=== PATIENT | male | born 1970 | race Caucasian/White ===

== ENCOUNTER 2019-11-18 06:13 | Day surgery (SDC) | payer OTHER, SELFPAY ==
[2019-11-14 07:30] VITALS: BMI 31.3
[2019-11-18] VITALS (14 sets, daily range): BP systolic 105–154; BP diastolic 64–90; PULSE 64–74; RESP 10–16; TEMP 36.3–37.2; O2SAT 85–97; BMI 30.6
--- NOTE | 2019-11-18 | PATH_ITS ---
[facility] Accession Number: [id number] . 01 Material submitted: . gallbladder - GALLBLADDER AND CONTENTS . 02 Diagnosis: Gallbladder, Cholecystectomy: Chronic cholecystitis. No calculi identified. Negative for dysplasia or malignancy. MRV 11/20/2019 1033 Local . 02 Electronically signed: . Cami Mantilla MD, Pathologist NPI- [id number] . 01 Gross description: . Received in formalin, labeled gallbladder and content, is an opened gallbladder (length-5.4 cm, diameter-2.7 cm) with jensen-pink, smooth, shiny serosa and an obliterated cystic duct. No lymph nodes are identified. The lumen is void of contents. No calculi are present. The mucosa is brown, smooth and flat. The wall is up to 0.1 cm thick. No nodules, masses or lesions are identified. Section code: (A1) proximal full-thickness serial section and two serial sections from the body; (A2) two longitudinal sections from the fundus. ([id number]) /MRV 11/19/2019 1334 Local . 02 Pathologist provided ICD-10: K81.1 . 02 CPT . 988228 Performed at: 01 [facility] [address], [place], [place] [id number] MD Pavel Gaytan MD Phone: [phone] Performed at: 02 [facility] [address] [place], [place] [id number] MD Cami Mantilla MD Phone: [phone]
--- NOTE | 2019-11-18 06:52 | PM.PREOP ---
Pre-operative Note Interval Note History & Physical reviewed/Exam performed by Physician: Yes Changes to H&P: No
[2019-11-18] MEDS: LACTATED RINGERS 1,000 ML 100 ML IV (07:25)
[2019-11-18] MEDS: CEFAZOLIN 2 GM/100 ML FROZ.PIGGY IV (08:00)
--- NOTE | 2019-11-18 08:18 | SUR.OPER ---
Supine on padded OR bed, head on pillow, arms secured on padded arm boards at <90 degrees abduction, legs uncrossed, safety belt at thigh, tape over blanket over lower legs.
[2019-11-18] MEDS: BUPIVACAINE 0.25% (PF) VIAL 30 ML INJ (08:24)
[2019-11-18] MEDS: ONDANSETRON 4 MG/2 ML INJ IV (09:23)
[2019-11-18] MEDS: fentaNYL 100 MCG/2 ML INJ IV ×2 (09:23→09:33)
--- NOTE | 2019-11-18 09:23 | PM.OP.1 ---
Operative Date/Time/Diagnoses Date of procedure: 11/18/19 Time of procedure: 09:23 Pre-op diagnosis: Biliary colic Post-op diagnosis: same Procedure & Clinicians Procedure: Laparoscopic cholecystectomy Same procedure as scheduled: Yes Indications: 49-year-old man with episodes of right upper quadrant pain following meals. He underwent a workup that showed no stones and he normal ejection fraction during HIDA exam but he he had significant pain with infusion of CCK similar to his episodes of abdominal pain. Surgeon: Parviz Ramsey Anesthesia Type: General Operative Notes Findings: Chronic cholecystitis Specimen(s): other (Gallbladder) Estimated Blood Loss (mL): 10 Procedure in detail: The patient was brought to the operating room placed supine on the table. Bilateral lower extremity compression devices were applied. General anesthesia was induced and they were intubated with an endotracheal tube. They received 2g of Ancef prior to skin incision. A time-out was performed to ensure the correct patient procedure necessary equipment within the operating room. They were then prepped and draped in the usual sterile fashion. Infraumbilical incision was made the umbilical stalk was grasped and elevated and the fascia was sharply incised. The abdomen was entered atraumatically. A 10 mm trocar was then placed into the abdomen. Pneumoperitoneum was established. The laparoscopic camera was inserted into the abdomen inspection was made that demonstrated no evidence of injury upon entry. We then placed our working ports the 1st 11 mm port high in the epigastrium and then two 5mm in the right upper quadrant. The gallbladder was grasped and retracted over the liver and grasped laterally by the fundus. There was evidence of chronic cholecystitis demonstrated by significant fat stranding and adhesions to the gallbladder The triangle of Calot was exposed. The triangle of calot was then meticulosly skeletonized using hook electrocautery and demonstrated the cystic duct clearly entering the gallbladder the cystic artery and the liver and in the background. With the critical view of safety established the cystic duct was clipped twice proximally and once distally and then sharply divided and the cystic artery was taken in the same fashion. Next the gallbladder was removed from the liver bed using electro cautery. The liver bed was then inspected for hemostasis and this was achieved. The abdomen was irrigated with sterile saline and inspection was made that showed the clips in good position. The specimen was removed using Endo-Catch. The abdomen was desufflated. The the fascia of the umbilicus was closed with 0 Vicryl in a [id number] fashion. Skin incisions were irrigated and closed with 4-0 Monocryl. The wounds were sealed with Dermabond. Patient emerged from general anesthesia was extubated and transferred to the postoperative care unit missed stable condition. The sponge and instrument count at the end of the operation was correct. Complications: none Post-operative Condition: stable Disposition: same day surgery
[2019-11-18] MEDS: METOCLOPRAMIDE 10 MG/2 ML INJ IV (09:35)
[2019-11-18] MEDS: OXYCODONE/ACETAMINOPHEN 5/325 TABLET 1 TAB PO ×2 (10:05→10:36)
[2019-11-18] MEDS: ACETAMINOPHEN 325 MG TABLET PO (10:37)
--- NOTE | 2019-11-18 10:53 | SUR.PHASEI ---
Pt dressing with 's assistance. Clarified w/Dr. Ramsey that pt can take ibuprofen.
--- NOTE | 2019-11-18 11:07 | SUR.PHASEII ---
Stable, pleasant, moving slowly, stable on feet. All medication questions answered/clarified. Friendly and appreciative.
== END 2019-11-18 10:55 | disposition home or self-care (01) ==
PROVIDERS: Referring Provider Surgery; Visit Provider Surgery
PROC: 0FT44ZZ Resection of Gallbladder, Percutaneous Endoscopic Approach (ICD-10-PCS; CPT 47562; principal; 2019-11-18 07:45)
DX: K81.1 Chronic cholecystitis (principal)
CPT/HCPCS: 47562; J0360; J0690; J1100; J2250; J2405; J2765; J3010

== ENCOUNTER 2019-11-20 15:18 | Observation (INO) | payer OTHER, SELFPAY ==
[2019-11-20] VITALS (9 sets, daily range): BP systolic 150–183; BP diastolic 74–92; PULSE 87–101; RESP 14–22; TEMP 36.9–39.6; O2SAT 93–99; BMI 31.4
--- NOTE | 2019-11-20 15:34 | DI.RAD.S_ITS ---
PROCEDURE: XR ACUTE ABDOMEN SERIES INDICATIONS: Abdominal pain, recent cholecystectomy, reportedly on Sunday of this week. TECHNIQUE: One view chest and two views of the abdomen were acquired. COMPARISON: None. FINDINGS: Surgical changes and devices: Surgical clips right upper quadrant consistent with reported recent cholecystectomy.. Chest: Lungs are clear. Heart size is normal. No pleural effusions. No pneumoperitoneum. Abdomen: Bowel gas pattern is nonspecific with a small bowel loop slightly prominent at the left lower abdomen. No suspicious calcifications. Visualized solid organ contours appear normal. Bones: No suspicious bony lesions. IMPRESSION: Nonspecific findings, right upper quadrant cholecystectomy clips. The presence of a single small bowel loop that is mildly gas prominent does not indicate a high likelihood of small bowel obstruction. However, depending on the clinical status followup by CT scanning may be warranted at this time. Dictated by: Pj Cedeno M.D. on 11/20/2019 at 16:42 Approved by: Pj Cedeno M.D. on 11/20/2019 at 16:43
--- NOTE | 2019-11-20 15:35 | ED_ITS ---
HPI - Sepsis General Chief Complaint: Fever Mode of arrival: EMS Source: EMS Limitations: no limitations Evaluation Sepsis Screen: No Definite Risk Sepsis Infection Criteria Present: Suspected New Infection Onset (ago): day(s) Associated Symptoms: fever, chills, cough, shortness of breath, nausea and abdominal pain Context: recent surgery/procedure Narrative: 49-year-old male daily smoker with history of GERD presents with fever, shaking chills cough productive of yellowish sputum which started yesterday. He was discharged on Sunday after having a laparoscopic cholecystectomy. He has not had a bowel movement in many days in states he is no longer passing gas. Additionally he has not urinated since at least yesterday. Review of Systems Constitutional Constitutional: Reports body ache(s), Reports chills, Denies fatigue, Reports fever(s), Denies frequent falls, Denies lethargy and Denies weakness Eyes Eyes: Denies change in vision, Denies eye discharge, Denies irritation and Denies loss of vision ENT Ears, Nose, Mouth, and Throat: Denies change in voice, Denies dizziness, Denies neck pain, Denies sore throat and Denies throat swelling Cardiovascular Cardiovascular: Denies chest pain, Denies irregular heart rhythm, Denies lightheadedness, Denies palpitations, Reports dyspnea, Denies dyspnea on exertion and Denies orthopnea Respiratory Respiratory: Reports cough, Reports excessive phlegm production, Reports dyspnea, Denies dyspnea on exertion and Denies wheezing Gastrointestinal Gastrointestinal: Reports abdominal pain, Denies change in bowel habits, Denies diarrhea, Reports nausea and Reports vomiting Genitourinary Genitourinary: Denies hematuria, Denies flank pain, Denies urinary incontinence and Denies urinary urgency Musculoskeletal Musculoskeletal: Denies back pain, Denies muscle weakness, Denies neck pain, Denies numbness and Denies tingling Integumentary/Breasts Skin/Breast: Denies pruritus, Denies erythema, Denies rash and Denies wounds Neurologic Neurologic: Denies behavioral changes, Denies confusion, Denies dizziness, Denies frequent falls, Denies loss of vision, Denies numbness, Denies tingling and Denies weakness Psychiatric Psychiatric: Denies anxiety, Denies behavioral changes, Denies confusion, Denies depression, Denies homicidal ideation and Denies suicidal ideation Endocrine Endocrine: Denies fatigue, Denies flushing and Denies palpitations Hematologic/Lymphatic Hematologic/Lymphatic: Denies easy bruising Allergic/Immunologic Allergic/Immunologic: Denies urticaria, Denies throat swelling and Denies whee zing Patient History Medical History Asthma (Acute) Depression (Acute) GERD (gastroesophageal reflux disease) (Acute) Hidradenitis (Acute) HTN (hypertension) (Acute) Tobacco abuse (Acute) Surgical History Hx of decompression of ulnar nerve (Acute) Hx of release of tendon (Acute) Hx of thumb surgery (Acute) Family History Mother Hypertension Gallstones Diabetes mellitus Father Hypertension Heart disease Social History marital status: household members: spouse occupational status: employed Smoking Status: Current every day smoker alcohol intake: former substance use type: does not use Smoking Status: Current every day smoker alcohol intake frequency: holidays/special occasions only Substance Use Type: marijuana Exam Narrative Exam Narrative: GENERAL: [49] year old patient appears stated age. Well- nourished, well-developed patient, in significant distress HEAD: Atraumatic. Normocephalic. EYES: Pupils equal round and reactive. Extraocular motions intact. No scleral icterus. No injection or drainage. ENT: Nose without bleeding, purulent drainage. Throat without erythema, t onsillar hypertrophy or exudate. Airway patent. NECK: Trachea midline. Non tender CARDIOVASCULAR: Regular rate and rhythm without murmurs, gallops, or rubs. RESPIRATORY: Decreased breath sounds bilaterally with coarse bases, perhaps faint crackles GASTROINTESTINAL: Firm, generalized tenderness, decreased breath sounds EXTREMITIES: No edema or joint tenderness. BACK: Nontender without deformity or crepitance. No flank tenderness. NEURO: AOx3. SKIN: No rash or erythema of visible areas Initial Vital Signs Initial Vital Signs: Vital Signs Temperature 100.5 F H 11/20/19 15:28 Pulse Rate 95 H 11/20/19 15:28 Respiratory Rate 15 11/20/19 15:28 Blood Pressure 178/80 H 11/20/19 15:28 Pulse Oximetry 99 11/20/19 15:28 Course Course Course Narrative: patient seen and evaluated by Dr. Ramsey at bedside. Orders Ordered: ED Orders 11/20/19 15:34 XR acute abdomen series Stat EKG-12 Lead Routine 11/20/19 15:43 Blood Culture Stat Complete Blood Count AUTO DIFF Stat Comprehensive Metabolic Panel Stat Lactate (Lactic Acid) Stat Procalcitonin Stat 11/20/19 15:52 Influenza A & B (PCR) Stat 11/20/19 16:28 CT chest abd pel w con Stat Levofloxacin (Levaquin) 750 mg in 150 mls @ 100 mls/hr IV NOW MARY KAY Last Infusion: 11/20/19 18:33 Dose: 0 mls/hr Documented by: Admin: 11/20/19 16:22 Dose: 100 mls/hr Documented by: ALEX Discontinued Medications Sodium Chloride (Normal Saline 0.9%) 3,333.9 mls @ 1,111.3 mls/hr 30 ml/kg infuse over 3 hr (3333.9 ml) IV NOW ONE Stop: 11/20/19 18:32 Last Infusion: 11/20/19 18:39 Dose: 0 mls/hr Documented by: Admin: 11/20/19 16:21 Dose: 1,111.3 mls/hr Documented by: ALEX Vital Signs Vital signs: Vital Signs - 8 hr 11/20/19 15:28 11/20/19 16:33 11/20/19 16:58 Temperature 100.5 F H Pulse Rate 95 H 93 H 101 H Respiratory Rate 15 21 22 Blood Pressure 178/80 H Blood Pressure [Left Arm] 154/77 H 158/86 H Blood Pressure [Right Arm] Pulse Oximetry 99 95 96 11/20/19 17:20 11/20/19 18:00 Temperature 100.5 F H 101.5 F H Pulse Rate 91 H Respiratory Rate 22 Blood Pressure Blood Pressure [Left Arm] Blood Pressure [Right Arm] 183/92 H Pulse Oximetry 95 MDM - Sepsis Lab Data Result diagrams: 11/20/19 15:43 11/20/19 15:43 Labs: Lab Results 11/20/19 11/20/19 11/20/19 Range/Units 15:43 15:43 15:43 WBC 10.2 (4.5-11.0) X10^3/uL RBC 5.00 (4.5-5.9) X10^6/uL Hgb 15.5 (13.5-17.5) g/dL Hct 43.9 (41-53) % MCV 87.8 (80-100) fL MCH 31.0 (26-34) PG MCHC 35.3 (30-36) % RDW 14.1 (11.6-14.8) % Plt Count 164 (150-400) X10^3/uL Neut % (Auto) 85.6 H (50-75) % Lymph % (Auto) 7.2 L (25-40) % [place] % (Auto) 6.7 (3-14) % Eos % (Auto) 0.2 L (2-4) % Baso % (Auto) 0.3 (0-2) % Neut # (Auto) 8700 H (6321-0406) /uL Lymph # (Auto) 700 L (3786-6256) /uL [place] # (Auto) 700 (0-900) /uL Eos # (Auto) 0 (0-450) /uL Baso # (Auto) 0 (0-100) /uL Sodium 136 L (137-145) mmol/L Potassium 3.6 (3.4-5.1) mmol/L Chloride 102 (98-107) mmol/L Carbon Dioxide 26 (22-32) mmol/L BUN 17 (9-20) mg/dL Creatinine 0.70 (0.66-1.25) mg/dL Estimated GFR > 60.0 (>60) mL/min BUN/Creatinine Ratio 24.3 H (6-22) Glucose 101 H (70-100) mg/dL Lactate (0.7-2.1) mmol/L Calcium 8.5 (8.4-10.2) mg/dL Total Bilirubin 0.5 (0.2-1.3) mg/dL AST 37 (17-59) IU/L ALT 50 H (<50) IU/L Alkaline Phosphatase 58 (38-126) U/L Total Protein 7.5 (6.3-8.2) g/dL Albumin 4.3 (3.5-5.0) g/dL Globulin 3.2 (1.7-4.1) g/dL Albumin/Globulin Ratio 1.3 (1.0-2.8) Procalcitonin 0.05 (<0.5) ng/mL 11/20/19 Range/Units 15:43 WBC (4.5-11.0) X10^3/uL RBC (4.5-5.9) X10^6/uL Hgb (13.5-17.5) g/dL Hct (41-53) % MCV (80-100) fL MCH (26-34) PG MCHC (30-36) % RDW (11.6-14.8) % Plt Count (150-400) X10^3/uL Neut % (Auto) (50-75) % Lymph % (Auto) (25-40) % [place] % (Auto) (3-14) % Eos % (Auto) (2-4) % Baso % (Auto) (0-2) % Neut # (Auto) (1798-1181) /uL Lymph # (Auto) (8438-2197) /uL [place] # (Auto) (0-900) /uL Eos # (Auto) (0-450) /uL Baso # (Auto) (0-100) /uL Sodium (137-145) mmol/L Potassium (3.4-5.1) mmol/L Chloride (98-107) mmol/L Carbon Dioxide (22-32) mmol/L BUN (9-20) mg/dL Creatinine (0.66-1.25) mg/dL Estimated GFR (>60) mL/min BUN/Creatinine Ratio (6-22) Glucose (70-100) mg/dL Lactate 1.4 (0.7-2.1) mmol/L Calcium (8.4-10.2) mg/dL Total Bilirubin (0.2-1.3) mg/dL AST (17-59) IU/L ALT (<50) IU/L Alkaline Phosphatase (38-126) U/L Total Protein (6.3-8.2) g/dL Albumin (3.5-5.0) g/dL Globulin (1.7-4.1) g/dL Albumin/Globulin Ratio (1.0-2.8) Procalcitonin (<0.5) ng/mL Urine Dip Bedside Urine Glucose Negative Bedside Urine Bilirubin - Negative Bedside Urine Ketone - Negative Urine Specific [place] 1.010 Bedside Urine Occult Blood - Negative Bedside Urine pH 8.0 Bedside Urine Protein - Negative Bedside Urine Urobilinogen - Negative Bedside Urine Nitrite - Negative Bedside Urine Leukocytes - Negative Esterase Imaging Data CT scan - abdomen/pelvis: Radiologist's Impression: 41 DO Justin Huynh Patient Imaging - Carlitos Blake 49 M 1970 ACTIVITY DATE EXAM STATUS AUTHOR 11/20/19 16:28 Signed Pj Cedeno 11/20/19 15:34 [place] [address] [place] Scan Report Signed Patient: Carlitos Blake WMR#: [id number] : 1970Acct:[id number] Age/Sex: 49 / MDate of Service: 11/20/19 Loc: ED Accession Number: [id number] Procedure: CT chest abd pel w con Ordering Provider: José Miguel Ochoa D.O. PROCEDURE: CT CHEST ABD PEL W CON INDICATIONS: cough, fever, shaking chills, severe abdominal pain post op TECHNIQUE: After the administration of intravenous contrast, 5 mm thick sections acquired from the lung apices to the symphysis. 2.5 mm thick coronal and sagittal reformats were acquired. Additional 7 mm thick coronal maximum intensity projection (MIP) reformats acquired through the lungs. Optional 10-minute delayed imaging may be performed from the kidneys to the bladder. For radiation dose reduction, the following was used: automated exposure control, adjustment of mA and/or kV according to patient size. COMPARISON: None. FINDINGS: Image quality: Excellent. CHEST: Lungs: No pulmonary contusions or lacerations. No acute airspace opacities. No pneumothorax or hemothorax. Central and peripheral airways appear patent and normal in caliber. Mediastinum: No mediastinal hematomas. Heart size is normal. No pericardial effusion. Thoracic aorta and pulmonary arteries demonstrate normal size and enhancement. No mediastinal or hilar adenopathy. Esophagus is normal in caliber. No hiatal her margarito. Chest wall: No rib fractures. No subcutaneous emphysema. No axillary or supraclavicular adenopathy. Thyroid gland appears normal where well seen. ABDOMEN: Solid organs: Liver is normal in size and enhancement, without lacerations. Gallbladder has been recently resected. Biliary system is non-dilated. Pancreas enhances normally, without transection. Spleen is normal in size and enhancement, without lacerations. No adrenal hematomas. Both kidneys enhance normally, without hydronephrosis or lacerations. Peritoneum and bowel: No free fluid or air. Unenhanced bowel loops demonstrate normal wall thickness and caliber. Nodes and vessels: No retroperitoneal or mesenteric adenopathy. Aorta and inferior vena cava are normal in size and enhancement. Miscellaneous: No ventral hernias. PELVIS: Genitourinary: Bladder wall thickness is normal. Miscellaneous: No inguinal hernias or adenopathy. Bones: Pelvic ring and hip joints appear intact. No vertebral compression fractures. IMPRESSION: Expected postsurgical change of cholecystectomy. No sign of bile leak. No operative complication found. Several small bowel loops are minimally prominent in terms of fluid within, but not to the degree that obstruction is suspected. Rather, mild postoperative ileus appears present. Dictated by: Pj Cedeno M.D. on 11/20/2019 at 17:20 Approved by: Pj Cedeno M.D. on 11/20/2019 at 17:22 [facility] Narrative Medical decision making narrative: 49-year-old male with gradually worsening abdominal pain and cough presents with fever and chills. Labs and imaging are very reassuring but given recent surgical intervention we sure the opinion that he is most appropriately observed in the hospital for potential evolution of underlying infection or illness Discharge Plan Departure Patient Disposition: Admitted as Observation Clinical Impression: Abdominal pain Qualifiers: Abdominal location: generalized Qualified Code(s): R10.84 - Generalized abdominal pain Fever Qualifiers: Fever type: unspecified Qualified Code(s): R50.9 - Fever, unspecified Admit Date/Time: 11/20/19 19:05 Admit Provider: Chepe Drummond
[2019-11-20 15:55] LABS: Add Manual Diff / Slide Review NO; Basophils Absolute Auto 0 /uL (0-100); Basophils Percent Auto 0.3 % (0-2); Eosinophils Absolute Auto 0 /uL (0-450); Eosinophils Percent Auto 0.2 % (2-4); Hematocrit 43.9 % (41-53); Hemoglobin 15.5 g/dL (13.5-17.5); Lymphocytes Absolute Auto 700 /uL (1100-4500); Lymphocytes Percent Auto 7.2 % (25-40); Mean Corpuscular HGB Conc 35.3 % (30-36); Mean Corpuscular Volume 87.8 fL (80-100); Monocytes Absolute Auto 700 /uL (0-900); Monocytes Percent Auto 6.7 % (3-14); Neutrophils Absolute Auto 8700 /uL (1500-7000); Neutrophils Percent Auto 85.6 % (50-75); Platelet Count 164 X10^3/uL (150-400); Red Cell Distribution Width 14.1 % (11.6-14.8); White Blood Cell Count 10.2 X10^3/uL (4.5-11.0)
[2019-11-20 16:03] LABS: Lactate (Lactic Acid) 1.4 mmol/L (0.7-2.1)
[2019-11-20 16:04] LABS: Alanine Aminotransferase 50 IU/L (<50); Albumin 4.3 g/dL (3.5-5.0); Albumin Globulin Ratio 1.3 (1.0-2.8); Alkaline Phosphatase 58 U/L (38-126); Aspartate Aminotransferase 37 IU/L (17-59); BUN Creatinine Ratio 24.3 (6-22); Bilirubin Total 0.5 mg/dL (0.2-1.3); Blood Urea Nitrogen 17 mg/dL (9-20); Calcium 8.5 mg/dL (8.4-10.2); Carbon Dioxide 26 mmol/L (22-32); Chloride 102 mmol/L (98-107); Estimated Glomerular Filt Rate > 60.0 mL/min (>60); Globulin 3.2 g/dL (1.7-4.1); Glucose 101 mg/dL (70-100); HEMOLYSIS < 15 (0-50); Potassium 3.6 mmol/L (3.4-5.1); Sodium 136 mmol/L (137-145); Total Protein 7.5 g/dL (6.3-8.2)
[2019-11-20 16:21] LABS: Procalcitonin 0.05 ng/mL (<0.5)
[2019-11-20] MEDS: SODIUM CHLORIDE 0.9% 1111.3 ML IV (16:21)
[2019-11-20] MEDS: levoFLOXacin 750 MG/150 ML PIGGYBACK 100 MG IV (16:22)
--- NOTE | 2019-11-20 16:28 | DI.CT.S_ITS ---
PROCEDURE: CT CHEST ABD PEL W CON INDICATIONS: cough, fever, shaking chills, severe abdominal pain post op TECHNIQUE: After the administration of intravenous contrast, 5 mm thick sections acquired from the lung apices to the symphysis. 2.5 mm thick coronal and sagittal reformats were acquired. Additional 7 mm thick coronal maximum intensity projection (MIP) reformats acquired through the lungs. Optional 10-minute delayed imaging may be performed from the kidneys to the bladder. For radiation dose reduction, the following was used: automated exposure control, adjustment of mA and/or kV according to patient size. COMPARISON: None. FINDINGS: Image quality: Excellent. CHEST: Lungs: No pulmonary contusions or lacerations. No acute airspace opacities. No pneumothorax or hemothorax. Central and peripheral airways appear patent and normal in caliber. Mediastinum: No mediastinal hematomas. Heart size is normal. No pericardial effusion. Thoracic aorta and pulmonary arteries demonstrate normal size and enhancement. No mediastinal or hilar adenopathy. Esophagus is normal in caliber. No hiatal hernia. Chest wall: No rib fractures. No subcutaneous emphysema. No axillary or supraclavicular adenopathy. Thyroid gland appears normal where well seen. ABDOMEN: Solid organs: Liver is normal in size and enhancement, without lacerations. Gallbladder has been recently resected. Biliary system is non-dilated. Pancreas enhances normally, without transection. Spleen is normal in size and enhancement, without lacerations. No adrenal hematomas. Both kidneys enhance normally, without hydronephrosis or lacerations. Peritoneum and bowel: No free fluid or air. Unenhanced bowel loops demonstrate normal wall thickness and caliber. Nodes and vessels: No retroperitoneal or mesenteric adenopathy. Aorta and inferior vena cava are normal in size and enhancement. Miscellaneous: No ventral hernias. PELVIS: Genitourinary: Bladder wall thickness is normal. Miscellaneous: No inguinal hernias or adenopathy. Bones: Pelvic ring and hip joints appear intact. No vertebral compression fractures. IMPRESSION: Expected postsurgical change of cholecystectomy. No sign of bile leak. No operative complication found. Several small bowel loops are minimally prominent in terms of fluid within, but not to the degree that obstruction is suspected. Rather, mild postoperative ileus appears present. Dictated by: Pj Cedeno M.D. on 11/20/2019 at 17:20 Approved by: Pj Cedeno M.D. on 11/20/2019 at 17:22
--- NOTE | 2019-11-20 19:27 | P.HP_ITS ---
History of Present Illness History of Present Illness Date Patient Seen: 11/20/19 Time Patient Seen: 16:28 Chief complaint: Fever SOB,post op Narrative: Patient is a gentleman who had a laparoscopic cholecystectomy performed 2 days ago. He developed severe abdominal pain fever and chills. He stated that when he blinks his abdomen hurts. Patient History Medical History Asthma (Acute) Depression (Acute) GERD (gastroesophageal reflux disease) (Acute) Hidradenitis (Acute) HTN (hypertension) (Acute) Tobacco abuse (Acute) Surgical History Hx of decompression of ulnar nerve (Acute) Hx of release of tendon (Acute) Hx of thumb surgery (Acute) Family & Social History Family History Mother Hypertension Gallstones Diabetes mellitus Father Hypertension Heart disease Social History: household members spouse Safety & Behavioral: Feels Safe in Current Yes Environment Been Physically Hurt or No Threatened By a Person Tobacco & Substance use: Tobacco type cigarettes Smoking Status Current every day smoker alcohol intake former alcohol intake frequency holiday/special occasion Substance Use Type marijuana Meds Home Medications and Allergies Home Medications Medication Instructions Recorded Confirmed Type ranitidine HCl 150 mg tablet 150 mg PO BID 11/10/19 11/20/19 History oxycodone 5 mg PO Q6H PRN #30 tab 11/18/19 11/20/19 Rx Allergies Allergy/AdvReac Type Severity Reaction Status Date / Time No Known Drug Allergies Allergy Verified 11/20/19 15:28 Review of Systems Review of Systems Narrative: Denies cough cold chest pain heart disease. States his abdomen is been hard for at least 8 months. Exam Vital Signs (past 8 hours): - 11/20/19 15:28 11/20/19 16:33 11/20/19 16:58 Temperature 100.5 F H Pulse Rate 95 H 93 H 101 H Respiratory Rate 15 21 22 Blood Pressure 178/80 H Blood Pressure [Left Arm] 154/77 H 158/86 H Blood Pressure [Right Arm] Pulse Oximetry 99 95 96 11/20/19 17:20 11/20/19 18:00 Temperature 100.5 F H 101.5 F H Pulse Rate 91 H Respiratory Rate 22 Blood Pressure Blood Pressure [Left Arm] Blood Pressure [Right Arm] 183/92 H Pulse Oximetry 95 Oxygen Delivery Method Room Air Narrative Exam Narrative: Lungs are clear heart regular rate and rhythm without murmur gallop abdomen is rigid but there is no tenderness with vigorous side decide palpation may have a red cast across the abdomen is difficult to tell due to the prep that was used intraoperatively. Incision appears to be intact Objective Labs Result Diagrams: 11/20/19 15:43 11/20/19 15:43 Labs: Laboratory Results - last 24 hr 11/20/19 11/20/19 11/20/19 15:43 15:43 15:43 WBC 10.2 RBC 5.00 Hgb 15.5 Hct 43.9 MCV 87.8 MCH 31.0 MCHC 35.3 RDW 14.1 Plt Count 164 Neut % (Auto) 85.6 H Lymph % (Auto) 7.2 L [place] % (Auto) 6.7 Eos % (Auto) 0.2 L Baso % (Auto) 0.3 Neut # (Auto) 8700 H Lymph # (Auto) 700 L [place] # (Auto) 700 Eos # (Auto) 0 Baso # (Auto) 0 Sodium 136 L Potassium 3.6 Chloride 102 Carbon Dioxide 26 BUN 17 Creatinine 0.70 Estimated GFR > 60.0 BUN/Creatinine Ratio 24.3 H Glucose 101 H Lactate Calcium 8.5 Total Bilirubin 0.5 AST 37 ALT 50 H Alkaline Phosphatase 58 Total Protein 7.5 Albumin 4.3 Globulin 3.2 Albumin/Globulin Ratio 1.3 Procalcitonin 0.05 11/20/19 15:43 WBC RBC Hgb Hct MCV MCH MCHC RDW Plt Count Neut % (Auto) Lymph % (Auto) [place] % (Auto) Eos % (Auto) Baso % (Auto) Neut # (Auto) Lymph # (Auto) [place] # (Auto) Eos # (Auto) Baso # (Auto) Sodium Potassium Chloride Carbon Dioxide BUN Creatinine Estimated GFR BUN/Creatinine Ratio Glucose Lactate 1.4 Calcium Total Bilirubin AST ALT Alkaline Phosphatase Total Protein Albumin Globulin Albumin/Globulin Ratio Procalcitonin Assessment & Plan Assessment and plan (1) Abdominal pain: Problem details: Patient with postoperative fever normal labs and a normal CT Qualifiers: Abdominal location: generalized Qualified Code(s): R10.84 - Generalized abdominal pain Current visit: Yes Status: Acute (2) Fever: Problem details: Will bring in begin broad-spectrum antibiotics cause unclear Qualifiers: Fever type: unspecified Qualified Code(s): R50.9 - Fever, unspecified Current visit: Yes Status: Acute
[2019-11-20 20:01] LABS: Influenza A - CEPHEID Flu A NEGATIVE (NEGATIVE); Influenza B - CEPHEID Flu B NEGATIVE (NEGATIVE)
[2019-11-20] MEDS: LACTATED RINGERS 1,000 ML 125 ML IV (20:45)
[2019-11-20] MEDS: AMPICILLIN/SULBACTAM 3 GM 3 GM in SODIUM CHLORIDE 0.9% 100 ML IV (20:48)
[2019-11-20] MEDS: ACETAMINOPHEN 325 MG TABLET 650 MG PO (20:51)
[2019-11-20] MEDS: KETOROLAC 30 MG/ML VIAL IV (20:52)
[2019-11-20] MEDS: GABAPENTIN 300 MG CAPSULE PO (20:52)
[2019-11-20] MEDS: CLINDAMYCIN 600 MG/50 ML PIGGYBACK 50 MG IV (22:02)
[2019-11-20] MEDS: MAGNESIUM CITRATE 300 ML SOLUTION 150 ML PO (22:04)
--- NOTE | 2019-11-20 23:31 | PC.NURSE ---
A&Ox4. 94%RA, 90% while asleep. LS: anterior and posterior wheezes. pt c/o SOB. VTO for RT nebulize and treat. Pt reports non-productive cough for a day and half. Respiratory panel ordered. Pt's last BM was 17th. bowel tones hypo, abdomen is tender and distended. VTO, mag citrate 150mls. pt NPO. IVF. oriented pt to the room. call light in reach.
[2019-11-20 23:32] LABS: Adenovirus Not Detected (Not Detect); Bordetella pertussis Not Detected (Not Detect); Chlamydophila pneumoniae Not Detected (Not Detect); Coronavirus 229E Not Detected (Not Detect); Coronavirus HKU1 Not Detected (Not Detect); Coronavirus NL 63 Not Detected (Not Detect); Coronavirus OC43 Not Detected (Not Detect); Human Metapneumovirus Not Detected (Not Detect); Human Rhinovirus/Enterovirus Not Detected (Not Detect); Influenza A Not Detected (Not Detect); Influenza B Not Detected (Not Detect); Mycoplasma pneumoniae Not Detected (Not Detect); Parainfluenza Virus 1 Not Detected (Not Detect); Parainfluenza Virus 2 Not Detected (Not Detect); Parainfluenza Virus 3 Not Detected (Not Detect); Parainfluenza Virus 4 Not Detected (Not Detect); Respiratory Syncytial Virus Not Detected (Not Detect)
[2019-11-21] VITALS (8 sets, daily range): BP systolic 135–165; BP diastolic 66–96; PULSE 61–84; RESP 16–20; TEMP 36.7–37.3; O2SAT 91–97
[2019-11-21] MEDS: HYDROMORPHONE 2 MG TABLET 1 MG PO ×3 (00:33→21:38)
[2019-11-21] MEDS: AMPICILLIN/SULBACTAM 3 GM 3 GM in SODIUM CHLORIDE 0.9% 100 ML IV ×4 (02:26→21:17)
[2019-11-21] MEDS: KETOROLAC 30 MG/ML VIAL IV ×3 (04:04→18:20)
[2019-11-21] MEDS: CLINDAMYCIN 600 MG/50 ML PIGGYBACK 50 MG IV ×3 (04:04→20:15)
[2019-11-21 06:11] LABS: BUN Creatinine Ratio 16.3 (6-22); Blood Urea Nitrogen 13 mg/dL (9-20); Carbon Dioxide 28 mmol/L (22-32); Chloride 102 mmol/L (98-107); Estimated Glomerular Filt Rate > 60.0 mL/min (>60); Glucose 100 mg/dL (70-100); HEMOLYSIS < 15 (0-50); Potassium 3.9 mmol/L (3.4-5.1); Sodium 139 mmol/L (137-145)
[2019-11-21] MEDS: ENOXAPARIN 40 MG/0.4 ML SYRINGE SUBCUT (08:57)
[2019-11-21] MEDS: ACETAMINOPHEN 325 MG TABLET 650 MG PO ×2 (08:57→17:56)
[2019-11-21] MEDS: GABAPENTIN 300 MG CAPSULE PO ×2 (08:57→20:22)
[2019-11-21] MEDS: LACTATED RINGERS 1,000 ML 125 ML IV (09:09)
--- NOTE | 2019-11-21 11:15 | PC.NURSE ---
Addendum entered by Georgia Thomason R.N. 11/21/19 12:40: Paged Dr. Hylton at 1210, rec'd kandy back at 1215. made aware that pt generally feels miserable, Headache with cough and persistent, Abd bloating, afebrile at this time, states chest feels tight to breath. Remains on Ra, 94-96% on RA. Ambulated in halls. Anxious. New order for Ativan 0.5mg IV X1 if needed, will try PRN Toradol first. Dr to see pt later today. Pt and his aware of update. Original Note: Day Shift- Pt A&OX4, anxious regarding hospital admission and plan for today. Support and encouragement provided. Encouraged pt to get OOB, ambulate, pt has steady gait. Have periods of light activity/walking, then rest periods. O2 sat 96% on RA, pt does have intermittent strong cough, which he states increases his headache pain. Small sputum production with cream colored sputum, few blood-pink spots present. Pt states his last Cigarette was 20th in the morning. Pt states chest feels tight, AE clear throughout lung ellis, diminished to lower lung ellis. Encouraged deep breathing and coughing with abd splinting. This com writer explained that when abd is bloated, the diaphragm pushes into abd, feels like one cannot take a deep breath. Will continue to monitor. Abd distended, BSX4, passing little flatus, belching, NPO for now, did have small sip of water with AM meds. IVF infusing to right hand PIV. Abd lap sites from previous lap Cholecystectomy are well approximated, steri-strips intact to lap sites X4. Fenton skin noted to distal end of umbilicus incision around steri-strip. Pt stated the umbilicus site has the most discomfort and was red last night. Pt's adult son Сергей rooming in.
[2019-11-21 13:29] LABS: Add Manual Diff / Slide Review NO; Basophils Absolute Auto 0 /uL (0-100); Basophils Percent Auto 0.5 % (0-2); Eosinophils Absolute Auto 0 /uL (0-450); Eosinophils Percent Auto 0.2 % (2-4); Hematocrit 43.4 % (41-53); Hemoglobin 15.3 g/dL (13.5-17.5); Lymphocytes Absolute Auto 1000 /uL (1100-4500); Mean Corpuscular HGB Conc 35.2 % (30-36); Mean Corpuscular Hemoglobin 30.9 PG (26-34); Mean Corpuscular Volume 87.8 fL (80-100); Monocytes Absolute Auto 700 /uL (0-900); Monocytes Percent Auto 10.8 % (3-14); Neutrophils Absolute Auto 5100 /uL (1500-7000); Neutrophils Percent Auto 74.5 % (50-75); Platelet Count 146 X10^3/uL (150-400); Red Blood Cell Count 4.94 X10^6/uL (4.5-5.9); Red Cell Distribution Width 14.2 % (11.6-14.8); White Blood Cell Count 6.9 X10^3/uL (4.5-11.0)
[2019-11-21 14:07] LABS: Procalcitonin 0.12 ng/mL (<0.5)
--- NOTE | 2019-11-21 15:30 | DI.RAD.S_ITS ---
PROCEDURE: XR CHEST 1V INDICATIONS: purulent sputum TECHNIQUE: One view of the chest was acquired. COMPARISON: [facility], CR, RIBS UNILATERAL WITH PA CXR, 05/10/2012, 15:34. FINDINGS: Surgical changes and devices: None. Lungs and pleura: Lungs are clear except for a slight degree of interstitial prominence, previously present and potentially a manifestation of prior smoking history. No pleural effusions or pneumothorax. Mediastinum: Mediastinal contours appear normal. Heart size is normal. Bones and chest wall: No suspicious bony lesions. Overlying soft tissues appear unremarkable. IMPRESSION: No pneumonia found. Mild interstitial prominence has been previously present extending into 2011 by prior plain film. This may reflect prior smoking history. No neoplasm suspected. Dictated by: Pj Cedeno M.D. on 11/21/2019 at 16:07 Approved by: Pj Cedeno M.D. on 11/21/2019 at 16:08
--- NOTE | 2019-11-21 15:33 | PM.PN.1 ---
Subjective Subjective Date Patient Seen: 11/21/19 Time Patient Seen: 15:33 Interval history: No acute events overnight. The patient is passing some gas and stool. He feels somewhat better generally, with less abdominal pain today. He still feels quite distended, and is having headache. Exam Vital Signs (past 8 hours): - 11/21/19 09:00 11/21/19 12:35 11/21/19 13:00 Temperature 98.4 F 98.2 F Pulse Rate 68 69 73 Respiratory Rate 18 18 20 Blood Pressure 156/96 H 135/79 Pulse Oximetry 96 94 96 Oxygen Delivery Method Room Air Oxygen Flow Rate 0 Narrative Exam Narrative: GENERAL: Alert, oriented, mild distress due to pain and discomfort HENT: Normocephalic, atraumatic. Hearing intact. Oral mucosa is pink and moist. EYES: Conjunctiva pink, sclera white, no periorbital swelling. CARDIOVASCULAR: Regular rate. No pedal edema. RESPIRATORY: Non-tachypneic, breathing comfortably on room air. GASTROINTESTINAL: Abdomen soft, moderately distended, mild generalized peritonitis GENITALURINARY: No flank tenderness. MUSCULOSKELETAL: Equal tone and mass bilaterally. SKIN: Warm, dry, soft, appropriate color for ethnicity. No other lesions, rashes, or wounds. NEURO: Alert and Oriented X 3. No gross sensory deficits, or cognitive issues. PSYCH: Appropriate affect and mood. Objective Labs Result Diagrams: 11/21/19 13:20 11/21/19 05:30 Labs: Laboratory Results - last 24 hr 11/20/19 11/20/19 11/20/19 15:43 15:43 15:43 WBC 10.2 RBC 5.00 Hgb 15.5 Hct 43.9 MCV 87.8 MCH 31.0 MCHC 35.3 RDW 14.1 Plt Count 164 Neut % (Auto) 85.6 H Lymph % (Auto) 7.2 L [place] % (Auto) 6.7 Eos % (Auto) 0.2 L Baso % (Auto) 0.3 Neut # (Auto) 8700 H Lymph # (Auto) 700 L [place] # (Auto) 700 Eos # (Auto) 0 Baso # (Auto) 0 Sodium 136 L Potassium 3.6 Chloride 102 Carbon Dioxide 26 BUN 17 Creatinine 0.70 Estimated GFR > 60.0 BUN/Creatinine Ratio 24.3 H Glucose 101 H Lactate Calcium 8.5 Total Bilirubin 0.5 AST 37 ALT 50 H Alkaline Phosphatase 58 Total Protein 7.5 Albumin 4.3 Globulin 3.2 Albumin/Globulin Ratio 1.3 Procalcitonin 0.05 Chlamy pneumoniae PCR Adenovirus (PCR) B.parapertussis DNA PCR Coronavirus OC43 (PCR) Coronavirus HKU1 (PCR) Coronavirus 229E (PCR) Coronavirus NL63 (PCR) Human Metapneumovir PCR Influenza A (RT-PCR) Influenza Type A (PCR) Influenza B (RT-PCR) Influenza Type B (PCR) M. pneumoniae (PCR) Parainfluenza 1 (PCR) Parainfluenza 2 (PCR) Parainfluenza 3 (PCR) Parainfluenza 4 (PCR) RSV (PCR) Entero/Rhino (PCR) 11/20/19 11/20/19 11/20/19 15:43 19:25 22:17 WBC RBC Hgb Hct MCV MCH MCHC RDW Plt Count Neut % (Auto) Lymph % (Auto) [place] % (Auto) Eos % (Auto) Baso % (Auto) Neut # (Auto) Lymph # (Auto) [place] # (Auto) Eos # (Auto) Baso # (Auto) Sodium Potassium Chloride Carbon Dioxide BUN Creatinine Estimated GFR BUN/Creatinine Ratio Glucose Lactate 1.4 Calcium Total Bilirubin AST ALT Alkaline Phosphatase Total Protein Albumin Globulin Albumin/Globulin Ratio Procalcitonin Chlamy pneumoniae PCR Not detected Adenovirus (PCR) Not detected B.parapertussis DNA PCR Not detected Coronavirus OC43 (PCR) Not detected Coronavirus HKU1 (PCR) Not detected Coronavirus 229E (PCR) Not detected Coronavirus NL63 (PCR) Not detected Human Metapneumovir PCR Not detected Influenza A (RT-PCR) Flu a negative Influenza Type A (PCR) Not detected Influenza B (RT-PCR) Flu b negative Influenza Type B (PCR) Not detected M. pneumoniae (PCR) Not detected Parainfluenza 1 (PCR) Not detected Parainfluenza 2 (PCR) Not detected Parainfluenza 3 (PCR) Not detected Parainfluenza 4 (PCR) Not detected RSV (PCR) Not detected Entero/Rhino (PCR) Not detected 11/21/19 11/21/19 11/21/19 05:30 13:20 13:20 WBC 6.9 RBC 4.94 Hgb 15.3 Hct 43.4 MCV 87.8 MCH 30.9 MCHC 35.2 RDW 14.2 Plt Count 146 L Neut % (Auto) 74.5 Lymph % (Auto) 14.0 L [place] % (Auto) 10.8 Eos % (Auto) 0.2 L Baso % (Auto) 0.5 Neut # (Auto) 5100 Lymph # (Auto) 1000 L [place] # (Auto) 700 Eos # (Auto) 0 Baso # (Auto) 0 Sodium 139 Potassium 3.9 Chloride 102 Carbon Dioxide 28 BUN 13 Creatinine 0.80 Estimated GFR > 60.0 BUN/Creatinine Ratio 16.3 Glucose 100 Lactate Calcium 8.0 L Total Bilirubin AST ALT Alkaline Phosphatase Total Protein Albumin Globulin Albumin/Globulin Ratio Procalcitonin 0.12 Chlamy pneumoniae PCR Adenovirus (PCR) B.parapertussis DNA PCR Coronavirus OC43 (PCR) Coronavirus HKU1 (PCR) Coronavirus 229E (PCR) Coronavirus NL63 (PCR) Human Metapneumovir PCR Influenza A (RT-PCR) Influenza Type A (PCR) Influenza B (RT-PCR) Influenza Type B (PCR) M. pneumoniae (PCR) Parainfluenza 1 (PCR) Parainfluenza 2 (PCR) Parainfluenza 3 (PCR) Parainfluenza 4 (PCR) RSV (PCR) Entero/Rhino (PCR) Assessment & Plan Assessment and plan (1) Abdominal pain: Problem details: Patient with postoperative fever normal labs and a normal CT, fever has improved and white count is improving on broad-spectrum antibiotics. Abdominal pain has improved somewhat, but the patient remains quite distended. He is passing some gas and stool, and denies nausea or vomiting. Repeat CMP, consider repeat CT scan if labs not improving Qualifiers: Abdominal location: generalized Qualified Code(s): R10.84 - Generalized abdominal pain Current visit: Yes Status: Acute (2) Fever: Problem details: Continue IV antibiotic, repeat procalcitonin CBC Qualifiers: Fever type: unspecified Qualified Code(s): R50.9 - Fever, unspecified Current visit: Yes Status: Acute (3) Bloating: Problem details: Continue NPO except for water and ice chips, continue ambulation Current visit: Yes Status: Acute Quality VTE Deep Vein Thrombosis/Pulmonary Embolism Present on Admission: No
[2019-11-21 15:44] LABS: Alanine Aminotransferase 53 IU/L (<50); Albumin 3.8 g/dL (3.5-5.0); Albumin Globulin Ratio 1.4 (1.0-2.8); Alkaline Phosphatase 67 U/L (38-126); Aspartate Aminotransferase 44 IU/L (17-59); Bilirubin Total 0.8 mg/dL (0.2-1.3); Bilirubin Unconjugated 0.6 mg/dL (0.0-1.1); Globulin 2.7 g/dL (1.7-4.1); HEMOLYSIS 16 (0-50); Total Protein 6.5 g/dL (6.3-8.2)
[2019-11-21] MEDS: DOCUSATE 100 MG CAPSULE PO (20:22)
[2019-11-22] VITALS (8 sets, daily range): BP systolic 124–147; BP diastolic 79–90; PULSE 54–70; RESP 16–20; TEMP 36.4–38.1; O2SAT 95–97
[2019-11-22] MEDS: KETOROLAC 30 MG/ML VIAL IV ×3 (02:06→20:04)
[2019-11-22] MEDS: AMPICILLIN/SULBACTAM 3 GM 3 GM in SODIUM CHLORIDE 0.9% 100 ML IV ×4 (02:07→21:26)
[2019-11-22] MEDS: CLINDAMYCIN 600 MG/50 ML PIGGYBACK 50 MG IV ×3 (03:36→20:02)
[2019-11-22 06:10] LABS: Add Manual Diff / Slide Review NO; Basophils Absolute Auto 0 /uL (0-100); Basophils Percent Auto 0.6 % (0-2); Eosinophils Absolute Auto 100 /uL (0-450); Eosinophils Percent Auto 1.3 % (2-4); Hematocrit 44.5 % (41-53); Hemoglobin 15.8 g/dL (13.5-17.5); Lymphocytes Absolute Auto 1300 /uL (1100-4500); Lymphocytes Percent Auto 17.8 % (25-40); Mean Corpuscular HGB Conc 35.4 % (30-36); Mean Corpuscular Hemoglobin 31.1 PG (26-34); Mean Corpuscular Volume 87.9 fL (80-100); Monocytes Absolute Auto 800 /uL (0-900); Monocytes Percent Auto 10.9 % (3-14); Neutrophils Absolute Auto 5200 /uL (1500-7000); Neutrophils Percent Auto 69.4 % (50-75); Platelet Count 145 X10^3/uL (150-400); Red Blood Cell Count 5.07 X10^6/uL (4.5-5.9); Red Cell Distribution Width 14.2 % (11.6-14.8); White Blood Cell Count 7.5 X10^3/uL (4.5-11.0)
[2019-11-22 06:23] LABS: Alanine Aminotransferase 51 IU/L (<50); Albumin Globulin Ratio 1.3 (1.0-2.8); Alkaline Phosphatase 61 U/L (38-126); Aspartate Aminotransferase 41 IU/L (17-59); BUN Creatinine Ratio 18.3 (6-22); Bilirubin Total 0.6 mg/dL (0.2-1.3); Blood Urea Nitrogen 11 mg/dL (9-20); Calcium 8.2 mg/dL (8.4-10.2); Carbon Dioxide 27 mmol/L (22-32); Chloride 101 mmol/L (98-107); Estimated Glomerular Filt Rate > 60.0 mL/min (>60); Glucose 100 mg/dL (70-100); HEMOLYSIS < 15 (0-50); Magnesium 2.5 mg/dL (1.6-2.3); Potassium 3.7 mmol/L (3.4-5.1); Sodium 139 mmol/L (137-145)
[2019-11-22] MEDS: HYDROMORPHONE 2 MG TABLET 1 MG PO ×2 (06:26→17:16)
--- NOTE | 2019-11-22 06:54 | PC.NURSE ---
Pt did well overnight. Complained of mild abdominal pain relived with Toradol. Only given 1mg PO dilaudid this morning after walking in halls. 2 small to medium loose BMs overnight. Hypoactive BT, distended belly, 4 lap sites clean dry intact Expiratory wheezes noted throughout. Pt reports hx smoking. reports dry cough afebrile with Max temp 99F Tolerating clear liquids but pt slowing down on intake due to increasing stomach pain during the evening. LR@125mL/hr continued
[2019-11-22] MEDS: ENOXAPARIN 40 MG/0.4 ML SYRINGE SUBCUT (08:21)
[2019-11-22] MEDS: GABAPENTIN 300 MG CAPSULE PO ×2 (08:21→20:02)
[2019-11-22] MEDS: DOCUSATE 100 MG CAPSULE PO ×2 (08:21→20:02)
[2019-11-22] MEDS: LACTATED RINGERS 1,000 ML 125 ML IV ×2 (09:54→23:57)
[2019-11-22] MEDS: SODIUM CHLORIDE 0.9% FLUSH 10 ML IV (10:59)
--- NOTE | 2019-11-22 12:05 | P.PN_ITS ---
Subjective Subjective Date Patient Seen: 11/22/19 Time Patient Seen: 12:05 Interval history: Patient is a gentleman admitted with severe abdominal pain. He feels like asked to move his bowels. Despite recording 3 bowel movements he says he has not moved anything of any significance through. He said he was given a bottle of lemonade tasting stuff but he only drank half of it. He has received stool softeners but not really had any effect. Exam Vital Signs (past 8 hours): - 11/22/19 05:00 11/22/19 08:00 11/22/19 11:20 Temperature 98.2 F 98.0 F 99.1 F Pulse Rate 67 63 56 L Respiratory Rate 16 18 18 Blood Pressure 131/87 147/86 H 143/82 H Pulse Oximetry 97 96 96 Oxygen Delivery Method Room Air Oxygen Flow Rate 0 Narrative Exam Narrative: Lungs are clear to auscultation. No rales or rhonchi. Heart regular rate and rhythm without murmur gallop. Abdomen is protuberant possibly distended soft. Incisions are intact. No redness of the abdominal wall. No obvious hernias. Objective Labs Result Diagrams: 11/22/19 05:34 11/22/19 05:34 Labs: Laboratory Results - last 24 hr 11/21/19 11/21/19 11/21/19 13:20 13:20 13:20 WBC 6.9 RBC 4.94 Hgb 15.3 Hct 43.4 MCV 87.8 MCH 30.9 MCHC 35.2 RDW 14.2 Plt Count 146 L Neut % (Auto) 74.5 Lymph % (Auto) 14.0 L [place] % (Auto) 10.8 Eos % (Auto) 0.2 L Baso % (Auto) 0.5 Neut # (Auto) 5100 Lymph # (Auto) 1000 L [place] # (Auto) 700 Eos # (Auto) 0 Baso # (Auto) 0 Sodium Potassium Chloride Carbon Dioxide BUN Creatinine Estimated GFR BUN/Creatinine Ratio Glucose Calcium Magnesium Total Bilirubin 0.8 Conjugated Bilirubin 0.0 Unconjugated Bilirubin 0.6 AST 44 ALT 53 H Alkaline Phosphatase 67 Total Protein 6.5 Albumin 3.8 Globulin 2.7 Albumin/Globulin Ratio 1.4 Procalcitonin 0.12 11/22/19 11/22/19 05:34 05:34 WBC 7.5 RBC 5.07 Hgb 15.8 Hct 44.5 MCV 87.9 MCH 31.1 MCHC 35.4 RDW 14.2 Plt Count 145 L Neut % (Auto) 69.4 Lymph % (Auto) 17.8 L [place] % (Auto) 10.9 Eos % (Auto) 1.3 L Baso % (Auto) 0.6 Neut # (Auto) 5200 Lymph # (Auto) 1300 [place] # (Auto) 800 Eos # (Auto) 100 Baso # (Auto) 0 Sodium 139 Potassium 3.7 Chloride 101 Carbon Dioxide 27 BUN 11 Creatinine 0.60 L Estimated GFR > 60.0 BUN/Creatinine Ratio 18.3 Glucose 100 Calcium 8.2 L Magnesium 2.5 H Total Bilirubin 0.6 Conjugated Bilirubin Unconjugated Bilirubin AST 41 ALT 51 H Alkaline Phosphatase 61 Total Protein 7.0 Albumin 4.0 Globulin 3.0 Albumin/Globulin Ratio 1.3 Procalcitonin Assessment & Plan Post-op Postoperative Postoperative status narrative: Patient post laparoscopic cholecystectomy on Sunday. Symptoms do not correlate with objective findings. Will try to stimulate bowel function. He is tolerating p.o. liquids without any problem. His fever abated essentially on admission. Chest x-rays shows no infiltrate and is a pretty unremarkable study. Plain films and CT did not show evidence of significant distension through his intestine Postoperative plan narrative: Ordered mineral oil, milk of magnesia and fleets enema. His plain films on admission showed stool throughout his colon. Will continue his IV antibiotics. If he tolerates liquids today we will advance him tomorrow. Quality VTE Deep Vein Thrombosis/Pulmonary Embolism Present on Admission: No
--- NOTE | 2019-11-22 12:49 | CM.DANOTE ---
Addendum entered by Domi Phelps LPN 11/22/19 13:29: Met with pt and his Shalonda. Pt is found lying in bed, abdomen appears distended and he reports it is painful and he great urge to move his bowels but has not been able to. it's just a little urine -like dribble that comes out. He says he has been getting up to walk the halls as much as possible. Has clear liquid tray in front of him that he is working on as he can. P: follow prn as POC unfolds Original Note: Discharge Planning/Care Management DCP: assessment: Case received, EMR reviewed. Discussed in Team Rounds. Pt is a 49 year old male who admitted night of 11/20 to care of [facility] : Dr. Drummond. Pt had a laproscopic cholecystectomy on 11/[address] Ramsey and with admission now for severe abdominal pain, fever and chills. Dr. Drummond was just here, notes CT shows colon full of stool and new bowel meds are now ordered. Pt will continue IV antibiotics and continue to try liquids. If this is tolerated, diet will be advanced tomorrow. Will follow for any d/c needs that may arise but anticipate pt will d/c to home setting when his bowel function has returned and he is tolerating diet. CM Discharge Assessment Start: 11/22/19 12:46 Freq: Status: Active Protocol: Document 11/22/19 12:46 ITV (Rec: 11/22/19 12:49 ITV [id number]) Discharge Planning Assessment Advance Directives? No History Provided By Medical Record Prior Living Arrangements House Household Members spouse Independent with ADL's Yes Is patient alert and oriented? Yes White board Updated in Patient Room with Yes name and ext. # of [employer] Review Status In Process
[2019-11-22] MEDS: MAGNESIUM HYDROXIDE 30 ML UDC PO (13:30)
[2019-11-22] MEDS: MINERAL OIL 473 ML OIL 30 ML PO (13:31)
[2019-11-22] MEDS: FLEETS ENEMA 1 EACH PR (13:31)
--- NOTE | 2019-11-22 15:53 | PC.NURSE ---
Day Shift- Pt c/o abd bloating, pressure, cramping 4-6/10. Belching, states nausea with coughing that lasts only a few minutes. ABd firm, BSX4, little amount of flatus, usually when trying to have a BM. Explained to pt to not strain while trying to have a BM, also to abd splint when coughing, moving. Had small loose BM this AM. Fleet enema, Milk of Magnesia, and Mineral oil given at 1330, see MAR. Pt instructed on enema procedure and expectations. Pt had small clear BM first then had moderate soft BM reported by [facility]. Evening Rn aware.
[2019-11-22] MEDS: ACETAMINOPHEN 325 MG TABLET 650 MG PO (20:06)
--- NOTE | 2019-11-22 22:21 | PC.NURSE ---
Evening Shift Note Patient with increased temperature this evening, lungs auscultated and fine crackles to bilateral bases. Patient encouraged to cough, deep breath and use IS hourly. Educated patient on risk of pneumonia due to decreased mobility this shift, ambulating to bathroom independently, otherwise laying flat in bed. Encouraged patient to sit up in chair and practice breathing exercises, walk in hallways several times per day to assist in movement of bowels and decrease risk of pneumonia. After conversation patient up and walking, stating I don't want to make anything worse. This RN retook patient temperature and WNL, lungs auscultated and lungs clear to bases with expiratory wheezes in left lobe. Will continue to monitor.
[2019-11-23] MEDS: AMPICILLIN/SULBACTAM 3 GM 3 GM in SODIUM CHLORIDE 0.9% 100 ML IV ×3 (02:31→13:53)
[2019-11-23] MEDS: CLINDAMYCIN 600 MG/50 ML PIGGYBACK 50 MG IV ×2 (04:10→11:21)
[2019-11-23 04:45] VITALS: BP 143/78; PULSE 57; RESP 16; TEMP 36.8; O2SAT 94
[2019-11-23 05:51] LABS: Add Manual Diff / Slide Review NO; Basophils Absolute Auto 0 /uL (0-100); Basophils Percent Auto 0.5 % (0-2); Eosinophils Absolute Auto 200 /uL (0-450); Eosinophils Percent Auto 1.9 % (2-4); Hemoglobin 16.2 g/dL (13.5-17.5); Lymphocytes Absolute Auto 1600 /uL (1100-4500); Lymphocytes Percent Auto 19.3 % (25-40); Mean Corpuscular HGB Conc 35.3 % (30-36); Mean Corpuscular Hemoglobin 30.9 PG (26-34); Mean Corpuscular Volume 87.5 fL (80-100); Monocytes Absolute Auto 700 /uL (0-900); Monocytes Percent Auto 8.6 % (3-14); Neutrophils Absolute Auto 5600 /uL (1500-7000); Neutrophils Percent Auto 69.7 % (50-75); Platelet Count 172 X10^3/uL (150-400); Red Blood Cell Count 5.26 X10^6/uL (4.5-5.9); Red Cell Distribution Width 13.8 % (11.6-14.8); White Blood Cell Count 8.1 X10^3/uL (4.5-11.0)
[2019-11-23 06:01] LABS: Alanine Aminotransferase 41 IU/L (<50); Albumin Globulin Ratio 1.3 (1.0-2.8); Alkaline Phosphatase 62 U/L (38-126); Aspartate Aminotransferase 33 IU/L (17-59); BUN Creatinine Ratio 16.7 (6-22); Bilirubin Total 0.6 mg/dL (0.2-1.3); Blood Urea Nitrogen 10 mg/dL (9-20); Calcium 8.2 mg/dL (8.4-10.2); Carbon Dioxide 27 mmol/L (22-32); Chloride 102 mmol/L (98-107); Estimated Glomerular Filt Rate > 60.0 mL/min (>60); Globulin 3.1 g/dL (1.7-4.1); Glucose 102 mg/dL (70-100); HEMOLYSIS < 15 (0-50); Magnesium 2.5 mg/dL (1.6-2.3); Potassium 3.6 mmol/L (3.4-5.1); Sodium 138 mmol/L (137-145); Total Protein 7.1 g/dL (6.3-8.2)
--- NOTE | 2019-11-23 06:12 | PC.NURSE ---
Addendum entered by Lillian Olivier R.N. 11/23/19 06:44: Patient complaining of 03/10 at 0630. He said it just started again w/ the cramping, he has been asymptomatic all night. Original Note: Patient did not complain of pain over night. No pain medications given on this shift. Patient VSS. Lung sounds clear bilaterally. Bowel tones positive. Patient was ambulating in hallway at the beginning of shift, patient is independent in the room.
[2019-11-23] MEDS: HYDROMORPHONE 2 MG TABLET 1 MG PO ×2 (06:22→10:39)
[2019-11-23] MEDS: ACETAMINOPHEN 325 MG TABLET 650 MG PO (06:25)
[2019-11-23] MEDS: KETOROLAC 30 MG/ML VIAL IV ×3 (06:26→20:28)
[2019-11-23 08:15] VITALS: BP 162/81; PULSE 50; RESP 18; TEMP 36.6; O2SAT 96
[2019-11-23] MEDS: DOCUSATE 100 MG CAPSULE PO ×2 (09:41→20:26)
[2019-11-23] MEDS: MINERAL OIL 473 ML OIL 30 ML PO (09:41)
[2019-11-23] MEDS: ENOXAPARIN 40 MG/0.4 ML SYRINGE SUBCUT (09:41)
[2019-11-23] MEDS: GABAPENTIN 300 MG CAPSULE PO ×2 (09:41→20:26)
[2019-11-23] MEDS: LACTATED RINGERS 1,000 ML 125 ML IV ×2 (09:45→20:59)
[2019-11-23 11:32] VITALS: BP 132/80; PULSE 51; RESP 18; TEMP 36.8; O2SAT 97
--- NOTE | 2019-11-23 13:43 | DI.RAD.S_ITS ---
PROCEDURE: XR ACUTE ABDOMEN SERIES INDICATIONS: pt fu abd distention with normal CT TECHNIQUE: One view chest and two views of the abdomen were acquired. COMPARISON: [facility], CT, CT CHEST ABD PEL W CON, 11/20/2019, 16:35. FINDINGS: Surgical changes and devices: Clips within the right upper quadrant are suggestive of a previous cholecystectomy. Chest: Lungs are clear. Heart size is normal. No pleural effusions. No pneumoperitoneum. Abdomen: No air-filled distended small bowel loops are identified demonstrating air-fluid levels. Air and stool are seen throughout the colon. No suspicious calcifications. Visualized solid organ contours appear normal. Bones: No suspicious bony lesions. IMPRESSION: 1. No bowel obstruction. 2. No acute cardiopulmonary process is evident. Dictated by: Darren Medrano M.D. on 11/23/2019 at 13:30 Approved by: Darren Medrano M.D. on 11/23/2019 at 13:31
--- NOTE | 2019-11-23 13:45 | P.PN_ITS ---
Subjective Subjective Date Patient Seen: 11/23/19 Time Patient Seen: 13:45 Interval history: Patient says he still has not had a bowel movement. Numerous bowel movements have been reported however. This is a bit confusing to me. Patient feels like he still bloated and needs to move his bowels. Exam Vital Signs (past 8 hours): - 11/23/19 08:15 Temperature 97.9 F Pulse Rate 50 L Respiratory Rate 18 Blood Pressure 162/81 H Pulse Oximetry 96 Oxygen Delivery Method Room Air Oxygen Flow Rate 0 Narrative Exam Narrative: Lungs are clear to auscultation no rales or rhonchi. Heart regular rate and rhythm no murmur gallop abdomen is protuberant and distended ,nontender. No cellulitis. Wounds intact. Objective Labs Result Diagrams: 11/23/19 05:01 11/23/19 05:01 Labs: Laboratory Results - last 24 hr 11/23/19 11/23/19 05:01 05:01 WBC 8.1 RBC 5.26 Hgb 16.2 Hct 46.0 MCV 87.5 MCH 30.9 MCHC 35.3 RDW 13.8 Plt Count 172 Neut % (Auto) 69.7 Lymph % (Auto) 19.3 L [place] % (Auto) 8.6 Eos % (Auto) 1.9 L Baso % (Auto) 0.5 Neut # (Auto) 5600 Lymph # (Auto) 1600 [place] # (Auto) 700 Eos # (Auto) 200 Baso # (Auto) 0 Sodium 138 Potassium 3.6 Chloride 102 Carbon Dioxide 27 BUN 10 Creatinine 0.60 L Estimated GFR > 60.0 BUN/Creatinine Ratio 16.7 Glucose 102 H Calcium 8.2 L Magnesium 2.5 H Total Bilirubin 0.6 AST 33 ALT 41 Alkaline Phosphatase 62 Total Protein 7.1 Albumin 4.0 Globulin 3.1 Albumin/Globulin Ratio 1.3 Assessment & Plan Post-op Postoperative Postoperative status narrative: Cause the present condition unclear. He is on mineral oil a, has received laxatives from bill of an enemas from below. Postoperative plan narrative: Plain x-rays ordered to see amount stool remains in his colon is see if there is any abnormal bowel gas pattern. Quality VTE Deep Vein Thrombosis/Pulmonary Embolism Present on Admission: No
[2019-11-23 15:30] VITALS: BP 136/89; PULSE 61; RESP 20; TEMP 36.7; O2SAT 93
[2019-11-23 19:51] VITALS: BP 131/81; PULSE 64; RESP 18; TEMP 36.8; O2SAT 95
--- NOTE | 2019-11-23 22:22 | PC.NURSE ---
Pt is A and O x 4, VSS. His abdomen is very firm, distended and uncomfortable. He has eaten a meal of mashed potatoes and macaroni and cheese and had a very small BM which was liquid and audie. He has passed a small amount of gas. He has drank approx 75 mLs of prune juice, 500 mLs of water and 240 mLs of stan [place]. He walks hourly.
[2019-11-23 23:51] VITALS: BP 117/56; PULSE 53; RESP 16; TEMP 37; O2SAT 95
[2019-11-24 05:00] VITALS: BP 154/81; PULSE 55; RESP 16; TEMP 38.1; O2SAT 96
[2019-11-24] MEDS: LACTATED RINGERS 1,000 ML 125 ML IV (05:16)
[2019-11-24 06:19] LABS: Add Manual Diff / Slide Review NO; Basophils Absolute Auto 0 /uL (0-100); Basophils Percent Auto 0.4 % (0-2); Eosinophils Absolute Auto 200 /uL (0-450); Eosinophils Percent Auto 2.4 % (2-4); Hematocrit 44.7 % (41-53); Hemoglobin 15.7 g/dL (13.5-17.5); Lymphocytes Absolute Auto 1900 /uL (1100-4500); Lymphocytes Percent Auto 20.4 % (25-40); Mean Corpuscular HGB Conc 35.1 % (30-36); Mean Corpuscular Hemoglobin 30.9 PG (26-34); Monocytes Absolute Auto 900 /uL (0-900); Monocytes Percent Auto 9.2 % (3-14); Neutrophils Absolute Auto 6200 /uL (1500-7000); Neutrophils Percent Auto 67.6 % (50-75); Platelet Count 177 X10^3/uL (150-400); Red Blood Cell Count 5.08 X10^6/uL (4.5-5.9); Red Cell Distribution Width 13.7 % (11.6-14.8); White Blood Cell Count 9.2 X10^3/uL (4.5-11.0)
[2019-11-24 06:21] LABS: Magnesium 2.3 mg/dL (1.6-2.3)
[2019-11-24 08:00] VITALS: BP 157/76; PULSE 55; RESP 16; TEMP 36.1; O2SAT 96
[2019-11-24] MEDS: ENOXAPARIN 40 MG/0.4 ML SYRINGE SUBCUT (08:50)
[2019-11-24] MEDS: KETOROLAC 30 MG/ML VIAL IV (08:55)
--- NOTE | 2019-11-24 10:15 | PC.NURSE ---
Patient alert, oriented, rates upper abdominal pain 7/10, cramping BT+ had liquid BM, ate 75% breakfast without nausea. 30mg Toradol given for pain. Patient ambulating in lewis independently.
--- NOTE | 2019-11-24 13:17 | P.DS_ITS ---
History of Present Illness History of Present Illness Date Patient Seen: 11/24/19 Time Patient Seen: 13:17 Chief complaint: Fever SOB,post op Narrative: Carlitos Blake is a 49-year-old man who underwent an elective laparoscopic cholecystectomy 11/18 for chronic cholecystitis. He did well for the 1st 2 days postoperatively at home and then had a fever and abdominal blo ating abdominal pain and nausea for which he presented to the emergency room. On admission he had a fever of 101.5 white blood cell count 10, normal procalcitonin, total bilirubin 0.[address] abdomen pelvis which demonstrated no fluid collection no free air was unremarkable. Discharge Providers Provider Date of admission: 11/20/19 20:04 Discharge Date: 11/24/19 Primary care physician: Nel Malcolm DO Consults: 11/20/19 20:07 Consult to Discharge Planning Routine Comment: Discharge provider: Parviz Ramsey MD Summary Hospital Course Discharge Diagnosis: Postoperative ileus Hospital Course: Patient was admitted to the hospital 2 days after a routine elective laparoscopic cholecystectomy with a postoperative ileus associated fever. He had a gradual reintroduction of his diet as he had return of bowel function. On the day of discharge 11/20 he is feeling well. He has had a regular diet which he tolerated and is having regular bowel movements. He has been afebrile and with a normal white count since admission. Exam Vital Signs (past 8 hours): - 11/24/19 08:00 Temperature 97.0 F L Pulse Rate 55 L Respiratory Rate 16 Blood Pressure 157/76 H Pulse Oximetry 96 Oxygen Delivery Method Room Air Oxygen Flow Rate 0 Narrative Exam Narrative: General-no acute distress, well nourished HEENT-moist mucous membranes, no scleral icterus Neck-supple, no lymphadenopathy Chest- non labored respirations, clear to auscultation bilaterally Cardiac-regular rate no peripheral edema Abdomen-soft, incisions clean dry intact nondistended Extremities-warm, well perfused Neurological-alert and oriented, no focal deficits Objective Labs Result Diagrams: 11/24/19 05:19 11/23/19 05:01 Labs: Laboratory Results - last 24 hr 11/24/19 11/24/19 05:19 05:19 WBC 9.2 RBC 5.08 Hgb 15.7 Hct 44.7 MCV 88.0 MCH 30.9 MCHC 35.1 RDW 13.7 Plt Count 177 Neut % (Auto) 67.6 Lymph % (Auto) 20.4 L [place] % (Auto) 9.2 Eos % (Auto) 2.4 Baso % (Auto) 0.4 Neut # (Auto) 6200 Lymph # (Auto) 1900 [place] # (Auto) 900 Eos # (Auto) 200 Baso # (Auto) 0 Magnesium 2.3 Discharge Plan Discharge Plan Patient Disposition: Home Discharge orders & Medications Prescriptions: Continued ranitidine HCl [Zantac] 150 mg tablet 150 mg PO BID RF: 0 oxycodone 5 mg tablet 5 mg PO Q6H PRN (Reason: pain) Qty: 30 RF: 0 Follow up/Referrals: Parviz Ramsey MD [Physician] - Nel Malcolm DO [Primary Care Provider] - Diet/Activity/Treatments Diet: Regular Activity: No driving while taking narcotics and no lifting >20lbs for 4 weeks from date of surgery Skin/Wound/Dressing Care Report to your healthcare provider any signs of infection, such as:: increased pain Visit Report/Discharge Packet Instructions: Eating a Diet Low in Saturated Fat, Trans Fat, and Cholesterol, Low-Fiber/Low-Residue Diet, Cholecystectomy -- Laparoscopic Surgery Discharge Data Primary Care Provider: Nel Malcolm Attending Provider: Chepe Drummond Admit Date/Time: 11/20/19 20:04 Discharges patient from system. Discharge Date/Time: 11/24/19 10:44 Quality VTE Deep Vein Thrombosis/Pulmonary Embolism Present on Admission: No
== END 2019-11-24 10:44 | disposition home or self-care (01) ==
LOC: ED 19:05 → AC 19:34
PROVIDERS: Surgery; Admitting Provider Specialist; Emergency Provider Emergency Medicine; PCP Family Medicine; Referring Provider Emergency Medicine; Visit Provider Specialist
DX: K56.7 Ileus, unspecified (principal); R50.9 Fever, unspecified; R14.0 Abdominal distension (gaseous); R10.84 Generalized abdominal pain; F17.210 Nicotine dependence, cigarettes, uncomplicated; K21.9 Gastro-esophageal reflux disease without esophagitis; Z90.49 Acquired absence of other specified parts of digestive tract; K91.89 Other postprocedural complications and disorders of digestive system; Y83.8 Other surgical procedures as the cause of abnormal reaction of the patient, or of later complication, without mention of misadventure at the time of the procedure
CPT/HCPCS: 36415; 71045; 71260; 74022; 74177; 80048; 80053; 80076; 81003; 83605; 83735; 84145; 85025; 87040; 87502; 87633; 93005; 96361; 96365; 96366; 96367; 96372; 96375; 96376; 99284; 99406; G0378; J0295; J1650; J1885; J1956; Q9967

== ENCOUNTER 2020-08-05 09:47 | Emergency (ER) | payer OTHER, SELFPAY ==
[2019-11-20 20:33] VITALS: BMI 31.4
[2020-08-05] VITALS (16 sets, daily range): BP systolic 137–195; BP diastolic 71–107; PULSE 50–67; RESP 10–28; TEMP 36.7–36.8; O2SAT 95–98; BMI 29.9
--- NOTE | 2020-08-05 10:02 | ED_ITS ---
HPI - Syncope General Chief Complaint: Syncope Stated Complaint: blacked out, chest pain Time Seen by Provider: 08/05/20 10:00 Source: patient Mode of arrival: Ambulatory Limitations: no limitations History of Present Illness HPI narrative: Patient here from work. Three episodes of syncope. No injury. Never fell on the floor. Able to catch himself on the counter. Feels mostly when he looks down and then gaze upward left eye twitches has discomfort in loses consciousness. No seizure activity noted by witnesses at work. Has had about 12 episodes in the past week and half. No history of seizures. History of migraine headaches. Did have a headache yesterday 1000 more left side. No family history or personal history of brain aneurysms. [place] fluttering heart after these episodes. But does not proceed syncope episodes. Blood pressure noted. History of high blood pressure. Denies taking blood pressure medications. Patient regains consciousness very quickly without any confusion or postictal symptoms. complaint: loss of consciousness Related Data Home Medications Medication Instructions Recorded Confirmed ranitidine HCl 150 mg tablet 150 mg PO BID 11/10/19 11/20/19 Previous Rx's Medication Instructions Recorded oxycodone 5 mg PO Q6H PRN #30 tab 11/18/19 Allergies Allergy/AdvReac Type Severity Reaction Status Date / Time No Known Drug Allergies Allergy Verified 08/05/20 10:03 Review of Systems Review of Systems Narrative: GENERAL: Denies chills, fatigue, malaise, fever, sweats. HEENT: Denies sinus pain, ear pain, sore throat, difficulty swallowing RESPIRATORY: Denies dyspnea, cough CARDIOVASCULAR: Denies chest pain, complains of palpitations, denies edema, GASTROINTESTINAL: Denies nausea, vomiting, abdominal pain, diarrhea, constipation, melena. : Denies dysuria, frequency, hematuria MUSCULOSKELETAL: denies muscle or bony pain SKIN: Denies rash, skin lesions NEUROLOGIC: Denies weakness, complains headache, denies numbness, change in speech, confusion PSYCHIATRIC: No SI or HI or hallucinations ROS Unobtainable: All systems reviewed & are unremarkable except as noted in HPI and below Patient History Medical History Asthma (Acute) Depression (Acute) GERD (gastroesophageal reflux disease) (Acute) Hidradenitis (Acute) HTN (hypertension) (Acute) Tobacco abuse (Acute) Surgical History Hx of decompression of ulnar nerve (Acute) Hx of release of tendon (Acute) Hx of thumb surgery (Acute) Family History Mother Hypertension Gallstones Diabetes mellitus Father Hypertension Heart disease Social History marital status: household members: spouse occupational status: employed Smoking Status: Current every day smoker alcohol intake: former substance use type: does not use Smoking Status: Current every day smoker alcohol intake frequency: holidays/special occasions only Substance Use Type: marijuana Exam Narrative Exam Narrative: GENERAL: patient appears stated age. Well-nourished, well- developed patient, in no distress, not toxic not dyspneic HEAD: Normocephalic. EYES: Pupils equal round and reactive. No scleral icterus. No injection no discharge ENT: Mucous membranes moist. No drooling no tongue elevation no trismus no malocclusion NECK: Trachea midline. Non tender CARDIOVASCULAR: Regular rate and rhythm without murmurs, gallops, or rubs. RESPIRATORY: Clear to auscultation. Breath sounds equal bilaterally. No wheezes, rales, or rhonchi. GASTROINTESTINAL: Abdomen soft, non-tender, nondistended. EXTREMITIES: No gross deformities. BACK: Nontender without deformity or crepitance. No flank tenderness. NEURO: AOx4. Clear speech no facial droop light touch intact to bilateral face hands and legs strong equal bay stocker. Stay suffocate from waiting room to his room. No ataxia. SKIN: Warm and dry PSYCH: Not anxious, is cooperative Initial Vital Signs Initial Vital Signs: Vital Signs Temperature 98.2 F 08/05/20 10:01 Pulse Rate 67 08/05/20 10:01 Respiratory Rate 16 08/05/20 10:01 Blood Pressure 195/107 H 08/05/20 10:01 Pulse Oximetry 98 08/05/20 10:01 Course Course Course Narrative: Currently after discussion with hospitalist here. Unable to get beds. Need to transfer patient. Orders Ordered: Discontinued Medications Sodium Chloride (Normal Saline 0.9%) 1,000 mls @ 150 mls/hr IV CONT MARY KAY Last Infusion: 08/05/20 12:39 Dose: 0 mls/hr Documented by: Admin: 08/05/20 10:30 Dose: 150 mls/hr Documented by: JESUS Sodium Chloride (Normal Saline 0.9%) 500 mls @ 1,000 mls/hr IV BOLUS ONE Stop: 08/05/20 10:29 Last Infusion: 08/05/20 12:39 Dose: 0 mls/hr Documented by: Admin: 08/05/20 10:30 Dose: 1,000 mls/hr Documented by: JESUS Reevaluation(s) Reevaluation #1: Reviewed with patient and results. They understand the need for transfer for further workup for syncope/fainting. At this time we do not have open beds Time: 13:18 Consultations Consultation #1: Spoke with [facility] hospitalist, Dr. mireles, will accept patient, he requests if we can get echocardiogram here before transfer Time: 12:59 Consultation #2: Spoke with [facility], they approved patient to be transferred Time: 13:29 Vital Signs Vital signs: Vital Signs - 8 hr 08/05/20 10:01 08/05/20 10:11 08/05/20 10:19 Temperature 98.2 F Pulse Rate 67 58 L 59 L Respiratory Rate 16 10 L 18 Blood Pressure 195/107 H 138/82 Pulse Oximetry 98 95 95 08/05/20 10:30 08/05/20 11:00 08/05/20 11:30 Temperature Pulse Rate 56 L 56 L 54 L Respiratory Rate 16 Blood Pressure 146/71 H 141/88 H 151/84 H Pulse Oximetry 95 97 95 08/05/20 11:52 08/05/20 12:00 08/05/20 12:01 Temperature Pulse Rate 52 L 51 L 50 L Respiratory Rate 17 17 Blood Pressure 137/77 154/80 H Pulse Oximetry 96 98 97 08/05/20 12:30 Temperature Pulse Rate 53 L Respiratory Rate Blood Pressure 164/85 H Pulse Oximetry 97 MDM - Syncope Differential Diagnosis Differential diagnosis: Likely syncope due to orthostatic hypotension, vasovagal syncope and other (Aneurysm/seizure) Lab Data Attestation: I reviewed the patient's lab results. Result diagrams: 08/05/20 10:00 11/05/20 10:00 Labs: Lab Results 08/05/20 08/05/20 08/05/20 Range/Units 10:00 10:00 10:00 WBC 12.1 H (4.5-11.0) X10^3/uL RBC 5.49 (4.5-5.9) X10^6/uL Hgb 16.9 (13.5-17.5) g/dL Hct 48.7 (41-53) % MCV 88.7 (80-100) fL MCH 30.7 (26-34) PG MCHC 34.7 (30-36) % RDW 13.8 (11.6-14.8) % Plt Count 248 (150-400) X10^3/uL Neut % (Auto) 68.5 (50-75) % Lymph % (Auto) 22.3 L (25-40) % [place] % (Auto) 6.3 (3-14) % Eos % (Auto) 1.7 L (2-4) % Baso % (Auto) 1.2 (0-2) % Neut # (Auto) 8300 H (1993-6350) /uL Lymph # (Auto) 2700 (1494-9293) /uL [place] # (Auto) 800 (0-900) /uL Eos # (Auto) 200 (0-450) /uL Baso # (Auto) 100 (0-100) /uL PT 12.8 H (10.1-12.7) SECONDS INR 1.1 (0.9-1.3) Sodium (137-145) mmol/L Potassium (3.4-5.1) mmol/L Chloride (98-107) mmol/L Carbon Dioxide (22-32) mmol/L BUN (9-20) mg/dL Creatinine (0.66-1.25) mg/dL Estimated GFR (>60) mL/min BUN/Creatinine Ratio (6-22) Glucose (70-100) mg/dL Calcium (8.4-10.2) mg/dL Magnesium 2.2 (1.6-2.3) mg/dL Total Bilirubin (0.2-1.3) mg/dL AST (17-59) IU/L ALT (<50) IU/L Alkaline Phosphatase (38-126) U/L Total Creatine Kinase (55-170) U/L CK-MB (CK-2) (<2.37) ng/mL CK-MB (CK-2) Rel Index (1.5-5.0) % Troponin I (0.01-0.034) ng/mL Total Protein (6.3-8.2) g/dL Albumin (3.5-5.0) g/dL Globulin (1.7-4.1) g/dL Albumin/Globulin Ratio (1.0-2.8) U Opiates 300ng/mL cut (Negative) Ur Oxycodone Screen (Negative) Urine Methadone Screen (Negative) Ur Barbiturates Screen (Negative) U Tricyclic Antidepress (Negative) Ur Phencyclidine Scrn (Negative) Ur Amphetamines Screen (Negative) U Methamphetamines Scrn (Negative) Ur MDMA Scrn (Ecstasy) (Negative) U Benzodiazepines Scrn (Negative) Urine Cocaine Screen (Negative) U Marijuana (THC) Screen (Negative) COVID-19 PCR (Negative) 08/05/20 08/05/20 08/05/20 Range/Units 10:00 11:00 13:28 WBC (4.5-11.0) X10^3/uL RBC (4.5-5.9) X10^6/uL Hgb (13.5-17.5) g/dL Hct (41-53) % MCV (80-100) fL MCH (26-34) PG MCHC (30-36) % RDW (11.6-14.8) % Plt Count (150-400) X10^3/uL Neut % (Auto) (50-75) % Lymph % (Auto) (25-40) % [place] % (Auto) (3-14) % Eos % (Auto) (2-4) % Baso % (Auto) (0-2) % Neut # (Auto) (1054-8035) /uL Lymph # (Auto) (4936-8799) /uL [place] # (Auto) (0-900) /uL Eos # (Auto) (0-450) /uL Baso # (Auto) (0-100) /uL PT (10.1-12.7) SECONDS INR (0.9-1.3) Sodium 138 (137-145) mmol/L Potassium 4.4 (3.4-5.1) mmol/L Chloride 105 (98-107) mmol/L Carbon Dioxide 25 (22-32) mmol/L BUN 15 (9-20) mg/dL Creatinine 0.69 (0.66-1.25) mg/dL Estimated GFR > 60.0 (>60) mL/min BUN/Creatinine Ratio 21.7 (6-22) Glucose 118 H (70-100) mg/dL Calcium 9.6 (8.4-10.2) mg/dL Magnesium (1.6-2.3) mg/dL Total Bilirubin 0.5 (0.2-1.3) mg/dL AST 26 (17-59) IU/L ALT 27 (<50) IU/L Alkaline Phosphatase 63 (38-126) U/L Total Creatine Kinase 150 (55-170) U/L CK-MB (CK-2) 1.75 (<2.37) ng/mL CK-MB (CK-2) Rel Index 1.2 L (1.5-5.0) % Troponin I < 0.012 (0.01-0.034) ng/mL Total Protein 8.3 H (6.3-8.2) g/dL Albumin 4.7 (3.5-5.0) g/dL Globulin 3.6 (1.7-4.1) g/dL Albumin/Globulin Ratio 1.3 (1.0-2.8) U Opiates 300ng/mL cut Negative (Negative) Ur Oxycodone Screen Negative (Negative) Urine Methadone Screen Negative (Negative) Ur Barbiturates Screen Negative (Negative) U Tricyclic Antidepress Negative (Negative) Ur Phencyclidine Scrn Negative (Negative) Ur Amphetamines Screen Negative (Negative) U Methamphetamines Scrn Negative (Negative) Ur MDMA Scrn (Ecstasy) Negative (Negative) U Benzodiazepines Scrn Negative (Negative) Urine Cocaine Screen Negative (Negative) U Marijuana (THC) Screen Positive H (Negative) COVID-19 PCR Negative (Negative) Imaging Data CT scan - head: Radiologist's Impression: [address] [address] [address] Scan Report Signed Patient: Carlitos Blake WMR#: [id number] : 1970Acct:[id number] Age/Sex: 49 / MDate of Service: 08/05/20 Loc: ED Accession Number: [id number] Procedure: CT head/brain wo con Ordering Provider: Melvin Barrera MD PROCEDURE: CT HEAD/BRAIN WO CON INDICATIONS: Syncope/headache TECHNIQUE: Noncontrast 4.5 mm thick angled axial sections acquired from the foramen magnum to the vertex, with coronal and sagittal reformats. For radiation dose reduction, the following was used: automated exposure control, adjustment of mA and/or kV according to patient size. COMPARISON: None. FINDINGS: Image quality: Excellent. CSF spaces: Basal cisterns are patent. No extra-axial fluid collections. Ventricles are normal in size and shape. Brain: No midline shift. No intracranial masses or hemorrhage. Lino-white matter interface is normal. Skull and face: Calvarium and visualized facial bones are intact, without suspicious lesions. Sinuses: Visualized sinuses and mastoids are clear. IMPRESSION: No acute intracranial finding. Dictated by: Juan Jose Arcos M.D. on 08/05/2020 at 12:02 Approved by: Juan Jose Arcos M.D. on 08/05/2020 at 12:03 CTA - brain/neck: Radiologist's Impression: [place] [address] CT Scan Report Signed Patient: Carlitos Blake WMR#: [id number] : 1970Acct:[id number] Age/Sex: 49 / MDate of Service: 08/05/20 Loc: ED Accession Number: [id number] Procedure: CT angio head and neck Ordering Provider: Melvin Barrera MD PROCEDURE: CT ANGIO HEAD AND NECK INDICATIONS: Syncope/headache TECHNIQUE: Noncontrast images were performed earlier in the day and not repeated. After the administration of intravenous contrast, 1 mm thick sections acquired from the aortic arch through the [place] of [place]. Post-contrast 4.5 mm thick sections then re- acquired from the foramen magnum to the vertex. 3-dimensional vkxtxit-rdukjuyce-bdxvxnnpvh (MIP) and/or volume rendering reformats were acquired of the central intracranial vasculature and neck separately. COMPARISON: [facility], CT, CT HEAD/BRAIN WO CON, 08/05/2020, 11:40. FINDINGS: Image quality: Excellent. BRAIN: CSF spaces: Ventricles are normal in size and shape. Basal cisterns are patent. No extra-axial fluid collections. Brain: No midline shift. No intracranial bleeds or masses. Lino-white matter interface appears intact. Skull and face: Calvarium and facial bones appear intact, without suspicious lesions. Orbits appear normal. Sinuses: Mucous retention cysts can be seen within the maxillary sinuses. There is at least moderate mucosal thickening within the ethmoid air cells. Mild mucosal th ickening is seen elsewhere within the paranasal sinuses. No abnormal fluid is seen within the mastoid air cells. HEAD CT ANGIOGRAPHY: Anterior circulation: Intracranial internal carotid arteries are normal in size and flow. The flow within the paired anterior cerebral arteries is normal and s ymmetric. The flow within the middle cerebral arteries is normal and symmetric. The anterior communicating artery is seen. No aneurysms are seen. Posterior circulation: Visualized portions of the vertebral arteries demonstrate normal caliber, and join to form a normal appearing basilar artery. Flow within the posterior cerebral arteries is normal and symmetric. No aneurysms are seen. NECK CT ANGIOGRAPHY: Carotid system: The great vessels demonstrate a conventional anatomy as they a rise from the aortic arch. The origins of the common carotid arteries appear patent. The common carotid arteries demonstrate normal caliber and courses. The bifurcation regions are both widely patent. The internal carotid arteries demonstrate normal calibers and courses. Posterior circulation: The origins of the vertebral arteries both appear widely patent. The more superior extracranial portions of both vertebral arteries also demonstrate normal courses and calibers. They join to form a normal appearing basilar artery. Soft tissues: Visualized neck soft tissues demonstrate no suspicious abnormalities. Bones: No suspicious bony lesions. Visualized cervical spine appears normally aligned. Age-appropriate bony degenerative changes are seen. IMPRESSION: No significant intracranial arterial abnormality is seen. Within the arteries of the neck, no hemodynamically significant stenosis can be seen. Paranasal sinus disease is seen, which is most prominent within the ethmoid air cells. Any quantitative measurements of stenosis were performed using NASCET criteria. Dictated by: Valente Carrasco M.D. on 08/05/2020 at 11:07 Approved by: Valente Carrasco M.D. on 08/05/2020 at 11:09 ECG Data Attestation: I personally reviewed and interpreted this ECG as follows: Interpretation: Normal sinus rhythm. No ST elevation depression. Rate 62. Normal EKG MDM Narrative Medical decision making narrative: Patient will need syncope workup. Patient will be need to be cleared to operate machinery or drive given multiple syncopal episodes. At this time no beds available here. Will need to transfer. Discharge Plan Departure Patient Disposition: [facility] Clinical Impression: Syncope Qualifiers: Syncope type: unspecified Qualified Code(s): R55 - Syncope and collapse Discharge Date/Time: 08/05/20 15:49 Prescriptions: No Action ranitidine HCl [Zantac] 150 mg tablet 150 mg PO BID RF: 0 oxycodone 5 mg tablet 5 mg PO Q6H PRN (Reason: pain) Qty: 30 RF: 0 Referrals: Nel Malcolm DO [Primary Care Provider] -
[2020-08-05 10:12] LABS: INR 1.1 (0.9-1.3); Prothrombin Time 12.8 SECONDS (10.1-12.7)
[2020-08-05 10:13] LABS: Add Manual Diff / Slide Review NO; Basophils Absolute Auto 100 /uL (0-100); Basophils Percent Auto 1.2 % (0-2); Eosinophils Absolute Auto 200 /uL (0-450); Eosinophils Percent Auto 1.7 % (2-4); Hematocrit 48.7 % (41-53); Hemoglobin 16.9 g/dL (13.5-17.5); Lymphocytes Absolute Auto 2700 /uL (1100-4500); Lymphocytes Percent Auto 22.3 % (25-40); Mean Corpuscular HGB Conc 34.7 % (30-36); Mean Corpuscular Hemoglobin 30.7 PG (26-34); Mean Corpuscular Volume 88.7 fL (80-100); Monocytes Absolute Auto 800 /uL (0-900); Monocytes Percent Auto 6.3 % (3-14); Neutrophils Absolute Auto 8300 /uL (1500-7000); Neutrophils Percent Auto 68.5 % (50-75); Platelet Count 248 X10^3/uL (150-400); Red Blood Cell Count 5.49 X10^6/uL (4.5-5.9); Red Cell Distribution Width 13.8 % (11.6-14.8); White Blood Cell Count 12.1 X10^3/uL (4.5-11.0)
[2020-08-05 10:18] LABS: Alanine Aminotransferase 27 IU/L (<50); Albumin 4.7 g/dL (3.5-5.0); Albumin Globulin Ratio 1.3 (1.0-2.8); Alkaline Phosphatase 63 U/L (38-126); Aspartate Aminotransferase 26 IU/L (17-59); BUN Creatinine Ratio 21.7 (6-22); Bilirubin Total 0.5 mg/dL (0.2-1.3); Blood Urea Nitrogen 15 mg/dL (9-20); Calcium 9.6 mg/dL (8.4-10.2); Carbon Dioxide 25 mmol/L (22-32); Chloride 105 mmol/L (98-107); Creatine Kinase 150 U/L (55-170); Estimated Glomerular Filt Rate > 60.0 mL/min (>60); Globulin 3.6 g/dL (1.7-4.1); Glucose 118 mg/dL (70-100); HEMOLYSIS < 15 (0-50); Magnesium 2.2 mg/dL (1.6-2.3); Potassium 4.4 mmol/L (3.4-5.1); Sodium 138 mmol/L (137-145); Total Protein 8.3 g/dL (6.3-8.2)
[2020-08-05 10:29] LABS: Troponin I < 0.012 ng/mL (0.01-0.034)
[2020-08-05] MEDS: SODIUM CHLORIDE 0.9% 1,000 ML 150 ML IV (10:30)
[2020-08-05] MEDS: SODIUM CHLORIDE 0.9% 500 ML 1000 ML IV (10:30)
[2020-08-05 10:33] LABS: CKMB % Relative Index 1.2 % (1.5-5.0); Creatine Kinase MB 1.75 ng/mL (<2.37)
--- NOTE | 2020-08-05 10:39 | PC.NURSE ---
Patient reports for some time he has been having intermittent episodes of blacking out visual changes noticed in his left eye. States his eyes roll back and he catches himself on the counter at work. Notices fluttering in my chest at times. Denies loss of bowel or bladder function, no seizure history. Patient reports severe headache last night which is very uncommon for him.
[2020-08-05 11:17] LABS: Ur Creatinine Normal (Normal); Ur Specific Gravity Normal (Normal); Urine pH Normal (Normal)
[2020-08-05 11:18] LABS: UR Morphine/Opiate cutoff 300 Negative (Negative); Urine Amphetamines Negative (Negative); Urine Barbiturates Negative (Negative); Urine Benzodiazepines Negative (Negative); Urine Cocaine Negative (Negative); Urine MDMA Negative (Negative); Urine Methadone Negative (Negative); Urine Methamphetamines Negative (Negative); Urine Oxycodone Negative (Negative); Urine Phencyclidine Negative (Negative); Urine Tetrahydrocannabinol Positive (Negative); Urine Tricyclic Antidepressant Negative (Negative)
--- NOTE | 2020-08-05 11:38 | DI.CT.S_ITS ---
PROCEDURE: CT ANGIO HEAD AND NECK INDICATIONS: Syncope/headache TECHNIQUE: Noncontrast images were performed earlier in the day and not repeated. After the administration of intravenous contrast, 1 mm thick sections acquired from the aortic arch through the [place] of [place]. Post-contrast 4.5 mm thick sections then re-acquired from the foramen magnum to the vertex. 3-dimensional kbrawfq-dqpburlee-mfnzdxdfih (MIP) and/or volume rendering reformats were acquired of the central intracranial vasculature and neck separately. COMPARISON: [facility], CT, CT HEAD/BRAIN WO CON, 08/05/2020, 11:40. FINDINGS: Image quality: Excellent. BRAIN: CSF spaces: Ventricles are normal in size and shape. Basal cisterns are patent. No extra-axial fluid collections. Brain: No midline shift. No intracranial bleeds or masses. Lino-white matter interface appears intact. Skull and face: Calvarium and facial bones appear intact, without suspicious lesions. Orbits appear normal. Sinuses: Mucous retention cysts can be seen within the maxillary sinuses. There is at least moderate mucosal thickening within the ethmoid air cells. Mild mucosal thickening is seen elsewhere within the paranasal sinuses. No abnormal fluid is seen within the mastoid air cells. HEAD CT ANGIOGRAPHY: Anterior circulation: Intracranial internal carotid arteries are normal in size and flow. The flow within the paired anterior cerebral arteries is normal and symmetric. The flow within the middle cerebral arteries is normal and symmetric. The anterior communicating artery is seen. No aneurysms are seen. Posterior circulation: Visualized portions of the vertebral arteries demonstrate normal caliber, and join to form a normal appearing basilar artery. Flow within the posterior cerebral arteries is normal and symmetric. No aneurysms are seen. NECK CT ANGIOGRAPHY: Carotid system: The great vessels demonstrate a conventional anatomy as they arise from the aortic arch. The origins of the common carotid arteries appear patent. The common carotid arteries demonstrate normal caliber and courses. The bifurcation regions are both widely patent. The internal carotid arteries demonstrate normal calibers and courses. Posterior circulation: The origins of the vertebral arteries both appear widely patent. The more superior extracranial portions of both vertebral arteries also demonstrate normal courses and calibers. They join to form a normal appearing basilar artery. Soft tissues: Visualized neck soft tissues demonstrate no suspicious abnormalities. Bones: No suspicious bony lesions. Visualized cervical spine appears normally aligned. Age-appropriate bony degenerative changes are seen. IMPRESSION: No significant intracranial arterial abnormality is seen. Within the arteries of the neck, no hemodynamically significant stenosis can be seen. Paranasal sinus disease is seen, which is most prominent within the ethmoid air cells. Any quantitative measurements of stenosis were performed using NASCET criteria. Dictated by: Valente Carrasco M.D. on 08/05/2020 at 11:07 Approved by: Valente Carrasco M.D. on 08/05/2020 at 11:09
[2020-08-05 13:53] LABS: COVID19 -Nasal RAPID Negative (Negative)
--- NOTE | 2020-08-05 14:54 | PC.NURSE ---
Pt given lunch tray and water and consumed 100%
--- NOTE | 2020-08-05 15:54 | PC.NURSE ---
John called multiple times, finally talked to placement secretary and pt's RN will call back d/t unavailability. John told transport was 10 min out. Pt discharged to ambulance Waiting for Anais Ferguson RN to call back for report.
--- NOTE | 2020-08-05 16:07 | PC.NURSE ---
Report given to Anais GONZALES at [facility], all questions answered.
== END 2020-08-05 15:49 | disposition short-term general hospital (02) ==
PROVIDERS: Emergency Provider Emergency Medicine; PCP Family Medicine
DX: R55 Syncope and collapse (principal); R51.9 Headache, unspecified; R07.9 Chest pain, unspecified
CPT/HCPCS: 36415; 70450; 70496; 70498; 80053; 80305; 82550; 82553; 83735; 84484; 85025; 85610; 87635; 93005; 96360; 96361; 99284; Q9967